=== PATIENT | female | born 1970 | race Caucasian/White ===

== ENCOUNTER → 2020-09-30 | Outpatient (CLI) | payer OTHER ==
--- NOTE | 2020-09-30 16:15 | RAD ---
EXAM: 3 Views bilateral Shoulder DATE: 09/30/2020 12:00 AM INDICATION: Reason: CHRONIC BILATERAL SHOULDER PAIN / Spl. Instructions: / History: COMPARISON: No Prior FINDINGS: There is no evidence for acute fracture or dislocation. Bilateral AC joint is congruent. Left AC joint degenerative changes are seen. Bilateral glenohumeral joint degenerative change with small glenoid rim osteophytes. Lucencies within the bilateral greater tuberosity from likely prior rotator cuff repair. Humeral head is not high riding. 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 Electronically signed by: Cesar Rowley MD (09/30/2020 4:12 PM) [id number]
== END ==
LOC: RAD 12:34
PROVIDERS: ATTEND Family Medicine
DX: M19.012 Primary osteoarthritis, left shoulder (principal); M19.011 Primary osteoarthritis, right shoulder
CPT/HCPCS: 73030-50